=== PATIENT | female | born 1965 | race Two or more races ===

== ENCOUNTER 2016-08-16 11:46 | Day surgery (SDC) | payer SELFPAY ==
[~2016-08-16 11:46] MED LIST: AMOXICILLIN500 M1 PO; GLUCOPHAGE1000 M1 PO; INVOKANA300 MG PO; VICTOZA 2-0.6 MG/0.1 SC; ZOCOR40 M1 PO
== END 2016-08-16 15:25 ==
LOC: SHSB 11:46 → ORE 13:28 → SHSB 14:10
PROC: 0LN70ZZ Release Right Hand Tendon, Open Approach (ICD-10-PCS; principal; 2016-08-16)
DX: M65.331 Trigger finger, right middle finger (principal); M65.9 Synovitis and tenosynovitis, unspecified; E11.9 Type 2 diabetes mellitus without complications; Z79.2 Long term (current) use of antibiotics; Z79.84 Long term (current) use of oral hypoglycemic drugs; Z79.899 Other long term (current) drug therapy; Z90.49 Acquired absence of other specified parts of digestive tract; Z90.79 Acquired absence of other genital organ(s); Z90.710 Acquired absence of both cervix and uterus; Z90.722 Acquired absence of ovaries, bilateral; Z98.890 Other specified postprocedural states
CPT/HCPCS: J0690